=== PATIENT | male | born 1930 | race Caucasian/White ===

== ENCOUNTER 2019-01-26 12:39 | Observation (INO) | payer MEDICARE ==
[~2019-01-26] VITALS: Ht 170.2 cm; Wt 83.7 kg
[2019-01-26 13:28] LABS: BASOPHILS ABSOLUTE AUTO 0.02 K/mm3 (0.00-0.23); BASOPHILS PERCENT AUTO 0 % (0-2); EOSINOPHILS ABSOLUTE AUTO 0.04 K/mm3 (0.00-0.68); EOSINOPHILS PERCENT AUTO 1 % (0-6); Hematocrit 23.9 % (37.0-53.0); Hemoglobin 7.5 g/dL (13.5-17.5); IMMATURE GRAN ABSOLUTE AUTO 0.04 K/mm3 (0.00-0.10); IMMATURE GRAN PERCENT AUTO 1 % (0-1); LYMPHOCYTES ABSOLUTE AUTO 1.15 K/mm3 (0.84-5.20); LYMPHOCYTES PERCENT AUTO 16 % (21-46); MONOCYTES ABSOLUTE AUTO 0.56 K/mm3 (0.16-1.47); MONOCYTES PERCENT AUTO 8 % (4-13); Mean Corpuscular HGB 32.5 pg (26.0-34.0); Mean Corpuscular HGB Conc 31.4 g/dL (31.5-36.5); Mean Corpuscular Volume 104 fL (80-100); Mean Platelet Volume 10.2 fL (9.1-12.4); NEUTROPHILS ABSOLUTE AUTO 5.57 K/mm3 (1.96-9.15); NEUTROPHILS PERCENT AUTO 76 % (41-73); Platelet Count 170 K/mm3 (150-400); RDW Coefficient Variation 17.9 % (11.7-14.2); RDW Standard Deviation 66.8 fL (35.1-46.3); Red Blood Cell Count 2.31 M/mm3 (4.30-5.90); White Blood Cell Count 7.38 K/mm3 (4.00-11.30)
[2019-01-26 13:48] LABS: Albumin, Blood 3.2 g/dL (3.4-5.0); Albumin/Globulin Ratio 1.1 (0.8-1.8); Bilirubin, Total 0.2 mg/dL (0.1-1.0); Bun/Creatinine Ratio 39.6 (12.0-20.0); Creatinine, Blood 3.26 mg/dL (0.60-1.20); Potassium, Blood 4.4 mmol/L (3.5-5.5); Total Protein, Blood 6.2 g/dL (6.4-8.2); Troponin I 0.203 ng/mL (0.000-0.040)
--- NOTE | 2019-01-26 14:54 | NUR ---
UPDATE: 1st unit PRBC started per orders. Pt verbalized understanding of possible blood reactions. Denies questions or concerns. VSS. LS clear. Call light in reach. Will monitor.
[2019-01-26] MEDS ORDERED: SMOOTHLAX17 GM PO (15:20)
[2019-01-26 15:21] LABS: Albumin, Blood 3.1 g/dL (3.4-5.0); Albumin/Globulin Ratio 1.1 (0.8-1.8); Bilirubin, Total 0.2 mg/dL (0.1-1.0); Bun/Creatinine Ratio 39.4 (12.0-20.0); Creatinine, Blood 3.25 mg/dL (0.60-1.20); Globulin, Blood 2.9 g/dL (2.2-4.0); Potassium, Blood 4.3 mmol/L (3.5-5.5); Troponin I 0.213 ng/mL (0.000-0.040)
--- NOTE | 2019-01-26 15:53 | NUR ---
ASSUMED CARE: PT TRANSFERRED TO PCU [address] LANDA AWARE. FIRST UNIT OF BLOOD INFUSING NOW. DR LANDA STATES TO TRANSFUSE [address] INFANTE AT BEDSIDE AT THIS TIME. NPO AT THIS TIME. FAX TO [facility] FOR MED LIST. PT DENIES CHEST PAIN. AFIB ON TELE WITH RATE CONTROL AT THIS TIME.
--- NOTE | 2019-01-26 17:59 | NUR ---
UPDATE: 2ND UNIT PRBC STARTED. PT DENIES CONCERNS AND VOICES UNDERSTANDING OF POSSIBLE BLOOD REACTION. WILL MONITOR.
--- NOTE | 2019-01-26 18:26 | NUR ---
SHIFT SUMMARY: PT NEW ADMIT THIS SHIFT. RECEIVING SECOND UNIT OF BLOOD AT THIS TIME. PLAN IS TO WATCH H AND H TO DETERMINE IF SCOPE NEEDS TO BE DONE IN HOUSE VS OUT PT. DR LANDA DENIES NEED FOR FURTHER CBC UNTIL AM DRAW. DR LANDA ALSO MADE AWARE OF PT'S STATED MEDICATION AND DENIED NEED FOR TARAZOSIN AND POTASSIUM AT THIS TIME. SEE NEW ORDERS. VSS. PT DENIES NEEDS
--- NOTE | 2019-01-26 19:35 | NUR ---
ASSUMED CARE PT RESTING IN ROOM COMFORTABLY AT THIS TIME. PER DAY SHIFT PT RECEIVED 2 UNITS PRBC'S TODAY FOR LOW H/H, AND CHRONIC ANEMIA. SECOND UNIT PRBC'S INFUSING NOW. PT TOLERATING WELL, LS CLEAR. RESP EVEN UNLABORED ON RA W/ SATS >92%. DENIES ANY PAIN, OR OTHER NEEDS. BLOOD PRODUCTS BEING INFUSED THROUGH MEDIPORT ACCESS, PER DAY SHIFT RN OK TO DRAW LABS FROM MEDIPORT WELL. CALL LIGHT IS IN REACH. PT CALLS APPROPRIATELY.
[2019-01-26 21:27] LABS: Hematocrit 27.7 % (37.0-53.0); Hemoglobin 8.8 g/dL (13.5-17.5); Mean Corpuscular HGB 31.9 pg (26.0-34.0); Mean Corpuscular HGB Conc 31.8 g/dL (31.5-36.5); Mean Platelet Volume 9.8 fL (9.1-12.4); Platelet Count 145 K/mm3 (150-400); RDW Coefficient Variation 19.1 % (11.7-14.2); RDW Standard Deviation 68.1 fL (35.1-46.3); Red Blood Cell Count 2.76 M/mm3 (4.30-5.90); White Blood Cell Count 6.87 K/mm3 (4.00-11.30)
[2019-01-26 21:30] LABS: Mean Corpuscular Volume 100 fL (80-100)
[2019-01-27 02:31] LABS: BASOPHILS ABSOLUTE AUTO 0.02 K/mm3 (0.00-0.23); BASOPHILS PERCENT AUTO 0 % (0-2); EOSINOPHILS ABSOLUTE AUTO 0.11 K/mm3 (0.00-0.68); EOSINOPHILS PERCENT AUTO 1 % (0-6); Hematocrit 28.1 % (37.0-53.0); IMMATURE GRAN ABSOLUTE AUTO 0.04 K/mm3 (0.00-0.10); IMMATURE GRAN PERCENT AUTO 1 % (0-1); LYMPHOCYTES ABSOLUTE AUTO 0.91 K/mm3 (0.84-5.20); LYMPHOCYTES PERCENT AUTO 11 % (21-46); MONOCYTES ABSOLUTE AUTO 0.71 K/mm3 (0.16-1.47); MONOCYTES PERCENT AUTO 9 % (4-13); Mean Corpuscular HGB 31.9 pg (26.0-34.0); Mean Corpuscular Volume 100 fL (80-100); Mean Platelet Volume 10.3 fL (9.1-12.4); NEUTROPHILS ABSOLUTE AUTO 6.48 K/mm3 (1.96-9.15); NEUTROPHILS PERCENT AUTO 78 % (41-73); Platelet Count 164 K/mm3 (150-400); RDW Coefficient Variation 19.6 % (11.7-14.2); RDW Standard Deviation 68.5 fL (35.1-46.3); Red Blood Cell Count 2.82 M/mm3 (4.30-5.90); White Blood Cell Count 8.27 K/mm3 (4.00-11.30)
[2019-01-27 02:48] LABS: Bilirubin, Total 0.4 mg/dL (0.1-1.0); Bun/Creatinine Ratio 38.9 (12.0-20.0); Calcium, Blood 9.2 mg/dL (8.5-10.1); Creatinine, Blood 3.03 mg/dL (0.60-1.20); Globulin, Blood 2.9 g/dL (2.2-4.0); Potassium, Blood 3.9 mmol/L (3.5-5.5); Total Protein, Blood 5.9 g/dL (6.4-8.2)
--- NOTE | 2019-01-27 03:44 | NUR ---
SHIFT SUMMARY PT SLEEPING IN ROOM COMFORTABLY AT THIS TIME. REPORT GIVEN FOF MARCUS FORDE RN D/T THIS RN BEING SENT HOME LOW CENSUS. PT HAD NO ACUTE CHANGES IN STATUS T/O NIGHT. WORE BIPAP UNTIL 0300, PT REPORTS WAKES UP EARLY. RESP EVEN UNLBAORED W/ SATS >92% ON RA. DENIED ANY CP T/O SHIFT. IVF TKO IN [facility], CAPS CHANGED TWICE THIS SHIFT FOR BLOOD DRAWS. PT DENIES OTHER NEEDS AT THIS TIME. CALL LIGHT IN REACH. PT CALLS APPROPRIATELY.
--- NOTE | 2019-01-27 10:23 | NUR ---
ECHOCARDIOGRAM COMPLETE
--- NOTE | 2019-01-27 12:01 | NUR ---
NOTE PT ALERT AND ORIENTED. SR/SB. VSS. PT RESTING QUIETLY MOST OF THE MORNING. NO COMPLAINTS. DR AGUIRRE AND DR LANDA HAVE COME TO SEE HIM. BEDSIDE ECHO COMPLETED BY LEYLA. PT SITTING UP EATING FULL LIQUID LUNCH. NO N/V, BLOATING OR CRAMPING. PT HAS NOT HAD A BM TODAY. CONTINUE POT.
--- NOTE | 2019-01-27 18:15 | NUR ---
DISCHARGE HOME DISCHARGE ORDERS RECEIVED. PT FAMILY UNABLE TO COME AND GET PT. THEY ALL LIVE IN [facility] TOGETHER. MADE A DATE FOR AN COMM[facility]ITY HEALTH CONSULTANT DISCHARGE TOMORROW. ISTRATE NOTIFIED OF CHANGE IN DISCHARGE. CONTINUE POT.
[2019-01-27] MEDS ORDERED: ACET325 PO (18:18)
[2019-01-27] MEDS ORDERED: NOVOLIN 70100 UNIT/1 SC ×2 (18:20→18:21)
[2019-01-27] MEDS ORDERED: SYNTHROID0.2 MG PO (18:22)
[2019-01-27] MEDS ORDERED: PANT40 PO (18:23)
[2019-01-27] MEDS ORDERED: Nitrostat0.4 MG SL (18:23)
[2019-01-28 05:15] LABS: BASOPHILS ABSOLUTE AUTO 0.01 K/mm3 (0.00-0.23); BASOPHILS PERCENT AUTO 0 % (0-2); EOSINOPHILS ABSOLUTE AUTO 0.06 K/mm3 (0.00-0.68); EOSINOPHILS PERCENT AUTO 1 % (0-6); Hematocrit 28.7 % (37.0-53.0); IMMATURE GRAN ABSOLUTE AUTO 0.05 K/mm3 (0.00-0.10); IMMATURE GRAN PERCENT AUTO 1 % (0-1); LYMPHOCYTES ABSOLUTE AUTO 0.73 K/mm3 (0.84-5.20); LYMPHOCYTES PERCENT AUTO 8 % (21-46); MONOCYTES PERCENT AUTO 10 % (4-13); Mean Corpuscular HGB 32.3 pg (26.0-34.0); Mean Corpuscular HGB Conc 31.4 g/dL (31.5-36.5); Mean Platelet Volume 10.5 fL (9.1-12.4); NEUTROPHILS ABSOLUTE AUTO 7.73 K/mm3 (1.96-9.15); NEUTROPHILS PERCENT AUTO 81 % (41-73); Platelet Count 149 K/mm3 (150-400); RDW Coefficient Variation 19.8 % (11.7-14.2); RDW Standard Deviation 70.5 fL (35.1-46.3); Red Blood Cell Count 2.79 M/mm3 (4.30-5.90); White Blood Cell Count 9.58 K/mm3 (4.00-11.30)
[2019-01-28 05:21] LABS: Mean Corpuscular Volume 103 fL (80-100)
[2019-01-28 05:34] LABS: Albumin, Blood 2.9 g/dL (3.4-5.0); Anion Gap 7 mmol/L (6-16); Blood Urea Nitrogen 103 mg/dL (8-24); CO2, Blood 26 mmol/L (21-32); Calcium, Blood 8.8 mg/dL (8.5-10.1); Chloride, Blood 106 mmol/L (98-108); Creatinine, Blood 2.94 mg/dL (0.60-1.20); Glomerular Filtration Rate 22 (60-); Glucose, Blood 116 mg/dL (70-99); Phosphorus, Blood 3.9 mg/dL (2.5-4.9); Potassium, Blood 4.1 mmol/L (3.5-5.5); Sodium, Blood 139 mmol/L (136-145)
--- NOTE | 2019-01-28 06:19 | NUR ---
SHIFT SUMMARY PT HAS REMAINED AOX4 THROUGHOUT SHIFT. VSS. PLEASANT AND COOPERATIVE WITH CARE. PT CONTINUES TO AMBULATE INDEPENDENTLY TO THE RESTROOM, CALLS APPROPRIATELY FOR ASSISTANCE IF NEEDED. PT WITH ONE LARGE, BLACK STOOL LAST NIGHT- REPORTS THAT THIS IS HIS BASELINE "FOR THE LAST FIVE YEARS". NO RED BLOOD NOTED. PT HAS RESTED WELL THROUGHOUT MUCH OF THE NIGHT, WAKING EASILY FOR VITAL SIGNS AND CARE. NO OTHER CHANGES FROM INITIAL ASSESSMENT. WILL CONTINUE TO MONITOR AND REPORT TO ONCOMING SHIFT RN. BED IN LOW POSITION, CALL LIGHT IN REACH.
--- NOTE | 2019-01-28 10:54 | NUR ---
DISCHARGE HOME PT DISCHARGED HOME. RIGHT CHEST MEDIPORT LOCKED WITH HEPARIN LOCK FLUSH AND DEACCESSED. BANDAIDE APPLIED OVER WOUND. VSS. PT DISCHARGE INFORMATION FAXED TO [facility] FOR F/U AND MEDICATION FILLING. MESSAGE LEFT FOR "COMMUNITY REFERRAL" FOR AN APPT WITH DR MACE FOR A CAPSULE ENDOSCOPY. NO RETURN CALL OF DISCHARGE. PT FAMILY HERE TO DRIVE PT HOME TO [place]. CONTINUE POT.
== END 2019-01-28 11:00 | disposition home or self-care (01) ==
LOC: ER 12:39 → PCU 12:40
PROVIDERS: Emergency Medicine; ADMIT Family Medicine
DX: I25.119 Atherosclerotic heart disease of native coronary artery with unspecified angina pectoris (principal); D53.9 Nutritional anemia, unspecified; I08.2 Rheumatic disorders of both aortic and tricuspid valves; I27.20 Pulmonary hypertension, unspecified; D50.0 Iron deficiency anemia secondary to blood loss (chronic); R77.8 Other specified abnormalities of plasma proteins; I13.0 Hypertensive heart and chronic kidney disease with heart failure and stage 1 through stage 4 chronic kidney disease, or unspecified chronic kidney disease; E11.22 Type 2 diabetes mellitus with diabetic chronic kidney disease; N18.4 Chronic kidney disease, stage 4 (severe); E03.9 Hypothyroidism, unspecified; I25.10 Atherosclerotic heart disease of native coronary artery without angina pectoris; E11.40 Type 2 diabetes mellitus with diabetic neuropathy, unspecified; E78.5 Hyperlipidemia, unspecified; Z88.5 Allergy status to narcotic agent; Z88.8 Allergy status to other drugs, medicaments and biological substances; Z88.6 Allergy status to analgesic agent; Z91.041 Radiographic dye allergy status; Z95.5 Presence of coronary angioplasty implant and graft
CPT/HCPCS: 36415; 36430; 80053; 80069; 82947; 83880; 84443; 84484; 85025; 85027; 86850; 86900; 86901; 86923; 93005; 93010; 93306; 94660; 94762; 96374; 96375; 96376; 99285-25; C9113; G0378; J1642; J1815; J1940; J7030; P9016